=== PATIENT | female | born 2000 | race African-American/Black ===

== ENCOUNTER 2021-01-12 20:58 | Emergency (ER) | payer OTHER ==
[~2021-01-12] VITALS: Ht 165.1 cm; Wt 140.0 kg
--- NOTE | 2021-01-12 21:30 | NUR ---
PT. TO ROOM FROM LOBBY AT THIS TIME.
--- NOTE | 2021-01-12 21:34 | NUR ---
PT. TO ED WITH C/O LEFT SIDE CP, DIZZINESS WITH STANDING X 1 TIME. PT. DENIES PAIN OR DIZZINESS AT THIS TIME. DR. CINTRON IN TO EVAL PT. AND DISCUSS POC WITH PT. AND FAMILY AT BS. EKG DONE IN TRIAGE. PT. PLACED ON SPO2, CARDIAC, AND B/P MONITORS. CALL LIGHT IN REACH. ALL SAFETY MEASURES OBSERVED.
[2021-01-12 22:15] LABS: BASOPHILS % (AUTO) 1 % (0-1); EOSINOPHILS % (AUTO) 2 % (1-7); LYMPHOCYTES % (AUTO) 32 % (22-44); MEAN CORPUSCULAR HEMOGLOBIN 20.7 pg (27.0-34.8); MEAN CORPUSCULAR HGB CONC 31.5 g/dL (32.4-35.8); MEAN PLATELET VOLUME 7.4 fL (7.4-10.4); MONOCYTES % (AUTO) 8 % (2-9); NEUTROPHILS % (AUTO) 57 % (42-75); PLATELET COUNT 466 x10^3/uL (130-400); RED CELL DISTRIBUTION WIDTH 19.6 % (9.6-15.2)
[2021-01-12 22:21] LABS: ALBUMIN 3.3 g/dL (3.4-5.0); ANION GAP 4 mmol/L (5-15); CHLORIDE 110 mmol/L (98-107); CREATININE 0.79 mg/dL (0.55-1.02)
[2021-01-12 22:24] LABS: MD NO
[2021-01-12 22:25] LABS: TROPONIN I < 0.015 ng/mL (0.000-0.045)
[2021-01-12 22:29] VITALS: BP 135/82
--- NOTE | 2021-01-12 22:30 | NUR ---
PT. CONTINUES RESTING ON GURNEY WITH NO DISTRESS CONTINUES TO DENY PAIN/DIZZINESS. CHART UP FOR RECHECK BY ERP
== END 2021-01-12 22:57 | disposition home or self-care (01) ==
LOC: ED 22:02 → EDIP 22:41 → UNDOADMIN 22:41 → ED 22:51
DX: R07.89 Other chest pain (principal); R42 Dizziness and giddiness
CPT/HCPCS: 36415; 71045; 80048; 82040; 84484; 84703; 85025; 85379; 93005; 99285

== ENCOUNTER 2021-04-28 21:27 | Emergency (ER) | payer OTHER ==
[~2021-04-28] VITALS: Ht 165.1 cm; Wt 132.0 kg
[2021-04-28 23:59] LABS: BASOPHILS % (AUTO) 1 % (0-1); EOSINOPHILS % (AUTO) 2 % (1-7); LYMPHOCYTES % (AUTO) 44 % (22-44); MEAN CORPUSCULAR HEMOGLOBIN 21.6 pg (27.0-34.8); MEAN CORPUSCULAR HGB CONC 32.2 g/dL (32.4-35.8); MEAN PLATELET VOLUME 7.6 fL (7.4-10.4); MONOCYTES % (AUTO) 8 % (2-9); NEUTROPHILS % (AUTO) 45 % (42-75); PLATELET COUNT 436 x10^3/uL (130-400); RED BLOOD COUNT 4.94 x10^6/uL (3.82-5.3); RED CELL DISTRIBUTION WIDTH 19.8 % (9.6-15.2)
[2021-04-29 00:02] LABS: ALBUMIN 3.2 g/dL (3.4-5.0); ANION GAP 5 mmol/L (5-15); CALCIUM 8.7 mg/dL (8.5-10.1); CHLORIDE 108 mmol/L (98-107); CREATININE 0.76 mg/dL (0.55-1.02)
[2021-04-29 01:00] LABS: ANISOCYTOSIS 1+; HYPOCHROMIA 1+; MICROCYTOSIS 1+
[2021-04-29 01:02] LABS: OVALOCYTES 1+; TARGET CELLS 1+; TEAR DROPS 1+
[2021-04-29 01:03] LABS: <PLATELET ESTIMATE> INCREASED; <PLT MORPHOLOGY> NORMAL PLT MORPH
== END 2021-04-29 01:06 | disposition home or self-care (01) ==
LOC: ED 22:56
DX: R00.2 Palpitations (principal); R42 Dizziness and giddiness; R06.02 Shortness of breath; R94.31 Abnormal electrocardiogram [ECG] [EKG]
CPT/HCPCS: 36415; 71045; 80048; 82040; 84443; 84703; 85025; 93005; 99285